=== PATIENT | male | born 1945 | race Caucasian/White ===

== ENCOUNTER 2022-11-23 16:49 | Emergency (ER) | payer MEDICARE ==
[~2022-11-23 16:49] MED LIST: Iopamidol 300 61% 100 ML VIAL FS ONE
[2022-11-23] MEDS ORDERED: NOREPINEPHRINE 8 MG/250 ML-D5W 250 ML ONE (16:55)
[2022-11-23] MEDS ORDERED: dilTIAZem 125 MG/25 ML SDV ONE ×2 (16:55→17:06)
[2022-11-23] MEDS ORDERED: Ondansetron PF 4 MG/2 ML Vial ONE (17:11)
[2022-11-23 17:27] LABS: Actual Bicarbonate (HCO3v) 17.8 mEq/L (22-28); Base Excess -8.8 mEq/L (-2 - +2); Chloride (VBG) 98 mmol/L (98-106); Hematocrit-VBG 37 % (42.0-52.0); Hemoglobin (Hb) 12.7 g/dL (12.6-17.4); Potassium (VBG) 4.29 mmol/L (3.70-5.30); Puncture Site Other Site; RapidComm Collect By LAB TECH; pH (venous) 7.254 (7.32-7.43)
[2022-11-23 17:35] LABS: #Monocytes 1.4 10x3/uL (0.0-1.1); #Neutrophils 10.7 10x3/uL (1.5-8.4); %Basophils 0.2 % (0.0-2.0); %Lymphocytes 11.3 % (18.0-47.0); %Monocytes 10.3 % (0.0-10.0); %Neutrophils 77.8 % (40.0-75.0); Hematocrit 35.8 % (38.8-50.0); Hemoglobin 11.7 g/dL (13.5-17.5); Mean Corpuscular HGB CONC 32.7 g/dL (32.0-36.0); Mean Corpuscular Hemoglobin 32.5 pg (27.0-33.0); Mean Corpuscular Volume 99.4 fl (81.2-95.1); Mean Platelet Volume 9.9 fl (7.4-10.4); Platelet Count 367 10x3/uL (150-450); RBC Distribution Width 13.4 % (11.5-14.5); White Blood Cell (WBC) Count 13.8 10x3/uL (3.5-10.5)
[2022-11-23 17:49] LABS: INR-International Normal Ratio 1.3; PTT 32.3 sec (22.0-33.0); Prothrombin Time 13.8 sec (9.5-12.1)
[2022-11-23 17:50] LABS: ALT (SGPT) 37 U/L (8-55); AST (SGOT) 30 U/L (5-34); Albumin 3.6 g/dL (3.4-4.8); Alkaline Phosphatase 64 U/L (40-110); Anion Gap 19 mmol/L (10-20); BUN (Urea Nitrogen) 34 mg/dL (8.4-25.7); Bilirubin, Total 1.5 mg/dL (0.2-1.2); Calc. Creatinine Clearance 0 mL/min (70-130); Calcium 8.1 mg/dL (7.8-10.44); Carbon Dioxide 18 mmol/L (23-31); Chloride 99 mmol/L (98-107); Estimated GFR 51; Globulin 2.3 g/dL (2.4-3.5); Lipase 19 U/L (8-78); Magnesium 2.4 mg/dL (1.6-2.6); Potassium 4.4 mmol/L (3.5-5.1); Protein, Total 5.9 g/dL (5.8-8.1); Sodium 132 mmol/L (136-145)
[2022-11-23 17:56] LABS: Troponin I 0.036 ng/mL (< 0.028)
[2022-11-23 17:58] LABS: Glucose 405 mg/dL (83-110)
[2022-11-23] MEDS ORDERED: Ondansetron ODT 4 MG TAB PO PRN (18:38)
[2022-11-23] MEDS ORDERED: Ondansetron PF 4 MG/2 ML Vial IVP PRN (18:38)
[2022-11-23] MEDS ORDERED: NOREPINEPHRINE 8 MG/250 ML-D5W 250 ML IVPB SCH (18:45)
[2022-11-23] MEDS ORDERED: dilTIAZem 125 MG in Sodium Chloride 0.9% 100 ML IVPB SCH (18:45)
[2022-11-23] MEDS ORDERED: Sodium Chloride 0.9% 1,000 ML IV SCH (18:45)
[2022-11-23] MEDS ORDERED: HumaLOG 300 UNITS/3 ML VIAL SC PRN (18:52)
[2022-11-23] MEDS ORDERED: Glucagon 1 MG/ML KIT IM PRN ×2 (18:52→19:22)
[2022-11-23] MEDS ORDERED: Dextrose 5% in Water 1,000 ML IV PRN ×2 (18:52→19:22)
[2022-11-23] MEDS ORDERED: Dextrose 50% Abboject 50 ML SYRINGE SLOW IVP PRN ×2 (18:52→19:22)
[2022-11-23 19:07] LABS: SARS-CoV-2 NAA Rapid Test Not Detected (NotDetected)
[2022-11-23] MEDS ORDERED: HumaLOG 300 UNITS/3 ML VIAL SC SCH (19:30)
[2022-11-23] MEDS ORDERED: Insulin Regular 300 UNITS/3 ML VIAL ONE (19:30)
[2022-11-23 20:28] LABS: Lactic Acid 3.7 mmol/L (0.5-2.2)
[2022-11-23] MEDS ORDERED: Famotidine/PF 20 mg/2ml Vial SLOW IVP SCH (21:00)
[2022-11-23] MEDS ORDERED: Vancomycin 1 GM in Premix Bag 1 BAG IVPB SCH (21:00)
[2022-11-23] MEDS ORDERED: Digoxin 0.5 MG/2 ML AMP ONE (21:34)
[2022-11-23 21:42] LABS: Lactic Acid 3.1 mmol/L (0.5-2.2)
[2022-11-23 21:47] LABS: Anion Gap 19 mmol/L (10-20); BUN (Urea Nitrogen) 34 mg/dL (8.4-25.7); Calc. Creatinine Clearance 0 mL/min (70-130); Calcium 8.1 mg/dL (7.8-10.44); Carbon Dioxide 17 mmol/L (23-31); Chloride 100 mmol/L (98-107); Estimated GFR 57; Magnesium 2.3 mg/dL (1.6-2.6); Potassium 4.5 mmol/L (3.5-5.1); Sodium 131 mmol/L (136-145)
[2022-11-23 22:01] LABS: Glucose 401 mg/dL (83-110)
[2022-11-23] MEDS ORDERED: Piperacillin/Tazobactam 3.375 GM in Sodium Chloride 0.9% 100 ML IVPB SCH (23:59)
== END 2022-11-23 22:24 | disposition short-term general hospital (02) ==
LOC: CSHERS 16:49
DX: I48.91 Unspecified atrial fibrillation (principal); I95.9 Hypotension, unspecified; Z20.822 Contact with and (suspected) exposure to COVID-19; E11.9 Type 2 diabetes mellitus without complications; E78.5 Hyperlipidemia, unspecified; Z79.899 Other long term (current) drug therapy; Z79.01 Long term (current) use of anticoagulants; Z79.84 Long term (current) use of oral hypoglycemic drugs
CPT/HCPCS: 0240U; 71045; 71260; 74177; 80048; 80053; 82010; 82805; 82962; 83605; 83690; 83735; 83880; 84145; 84484 ×2; 85025; 85610; 85730; 93005; 93306; 96361; 96365; 96366; 96374; 96375; 99291; 99292; 36415; 36416; J1160; J1815; J2405; Q9967